=== PATIENT | male | born 1950 | race African-American/Black ===

== ENCOUNTER 2018-03-30 08:21 | Emergency (ER) | payer MEDICARE, OTHER ==
[~2018-03-30] VITALS: Ht 175.3 cm; Wt 55.0 kg
[2018-03-30] MEDS ORDERED: ONDANSETRON HCL 4MG/2ML INJ IV ONE (09:45)
[2018-03-30] MEDS ORDERED: SODIUM CHLORIDE 0.9% 1,000 ML IV ONE (09:45)
[2018-03-30 10:14] LABS: HEMATOCRIT. 43.3 % (42.0-52.0); HEMOGLOBIN. 14.6 g/dL (14.0-18.0); MEAN CORPUSCULAR HEMOGLOBIN 31.1 pg (28.0-32.0); MEAN CORPUSCULAR VOLUME 92.1 fL (80.0-94.0); RED CELL DISTRIBUTION WIDTH 13.2 % (11.6-14.6)
[2018-03-30 10:20] LABS: INR 1.1; PROTHROMBIN TIME 11.3 sec (9.1-11.1)
[2018-03-30 10:24] LABS: CHLORIDE 92 mEq/L (98-107)
[2018-03-30 10:37] LABS: PLATELET 309 x1000/uL (130-400)
[2018-03-30 10:41] LABS: PLATELET ESTIMATE NORMAL
[2018-03-30] MEDS ORDERED: FAMOTIDINE 20MG/2ML VIAL IV STA (11:17)
[2018-03-30] MEDS ORDERED: MAGNESIUM/ALUMINUM HYDROXIDE/SIMETHICONE 30ML UDC PO STA (11:17)
[2018-03-30 13:00] VITALS: BP 143/61
== END 2018-03-30 13:26 | disposition home or self-care (01) ==
LOC: ER 08:55
DX: K29.70 Gastritis, unspecified, without bleeding (principal); I10 Essential (primary) hypertension; K59.00 Constipation, unspecified
CPT/HCPCS: 36415; 74176; 80053; 83690; 85025; 85610; 96361; 96374; 96375; 99284; J2405; J3490; J7030

== ENCOUNTER 2018-04-02 18:53 | Inpatient (IN) | payer MEDICARE, OTHER ==
[~2018-04-02] VITALS: Ht 175.3 cm; Wt 45.8 kg
[2018-04-02] MEDS ORDERED: SODIUM CHLORIDE 0.9% 1,000 ML IV ONE (22:53)
[2018-04-02] MEDS ORDERED: MAGNESIUM/ALUMINUM HYDROXIDE/SIMETHICONE 30ML UDC PO STA (22:53)
[2018-04-02] MEDS ORDERED: ONDANSETRON HCL 4MG/2ML INJ IV STA (22:53)
[2018-04-02 23:10] LABS: CLARITY URINE CLEAR (CLEAR); COLOR URINE YELLOW (YELLOW); KETONES URINE TRACE (NEGATIVE); LEUKOCYTE ESTERASE URINE NEGATIVE (NEGATIVE); NITRITE URINE NEGATIVE (NEGATIVE); OCCULT BLOOD URINE NEGATIVE (NEGATIVE); PROTEIN URINE NEGATIVE (NEGATIVE); SPECIFIC GRAVITY URINE 1.025 (1.005-1.030)
[2018-04-02 23:43] LABS: BASOPHILS % 0.4 % (0.0-2.0); EOSINOPHILS % 0.6 % (0.0-5.0); HEMATOCRIT. 35.4 % (42.0-52.0); HEMOGLOBIN. 11.9 g/dL (14.0-18.0); LYMPHOCYTES % 17.7 % (20.0-50.0); MEAN CORPUSCULAR HEMOGLOBIN 31.3 pg (28.0-32.0); MEAN PLATELET VOLUME 8.5 fl (7.4-10.4); MONOCYTES % 7.6 % (2.0-8.0); NEUTROPHILS % 73.7 % (40.0-76.0); PLATELET 315 x1000/uL (130-400); RED BLOOD CELL COUNT 3.81 mill/uL (4.7-6.1)
[2018-04-02 23:46] LABS: CHLORIDE 97 mEq/L (98-107)
[2018-04-03] MEDS ORDERED: BENA20TA10 PO (01:48)
[2018-04-03 04:00] VITALS: BP 114/63
[2018-04-03] MEDS ORDERED: POLY17PO28 MT (04:10)
[2018-04-03] MEDS ORDERED: ONDA8TAB6 MT (04:10)
[2018-04-03] MEDS ORDERED: OMEP20TA15 MT (04:10)
[2018-04-03] MEDS ORDERED: FAMO-135 MT (04:10)
[2018-04-03 04:13] VITALS: BP 164/68
[2018-04-03] MEDS ORDERED: ONDANSETRON HCL 4MG/2ML INJ IV PRN (04:45)
[2018-04-03] MEDS: SODIUM CHLORIDE 0.9% 1,000 ML IV SCH ×2 (06:39→16:32)
[2018-04-03] MEDS ORDERED: OMEPRAZOLE 20MG CAPSULE EXTENDED RELEASE PO SCH ×2 (07:20→21:00)
[2018-04-03] MEDS ORDERED: HYDROMORPHONE HCL/PF 2MG/ML CPJ IV PRN (07:45)
[2018-04-03 08:00] VITALS: BP 89/64
[2018-04-03] MEDS ORDERED: BENAZEPRIL 10MG TABLET PO SCH (09:00)
[2018-04-03] MEDS ORDERED: MEDICATION NOT ON FORMULARY EA (Famotidine (Pepcid) 1 TAB) MT SCH (09:00)
[2018-04-03] MEDS ORDERED: MEDICATION NOT ON FORMULARY EA (Omeprazole Magnesium (Prilosec Otc) 1 TAB) MT SCH (09:00)
[2018-04-03] MEDS ORDERED: ENOXAPARIN 40MG/0.4ML SYR SUBCUT SCH (09:00)
[2018-04-03] MEDS ORDERED: POLYETHYLENE GLYCOL 3350 (17GM) 1 DOSE PACK PO SCH (09:00)
[2018-04-03] MEDS ORDERED: POLYETHYLENE GLYCOL MT SCH (09:00)
[2018-04-03] MEDS ORDERED: MEDICATION NOT ON FORMULARY EA (Benazepril Hcl 20 MG) PO SCH (09:00)
[2018-04-03] MEDS ORDERED: INFLUENZA VIRUS VACCINE(AFLURIA) 0.5ML SYR IM ONE (10:00)
[2018-04-03 12:00] VITALS: BP 126/70
[2018-04-03 16:00] VITALS: BP 132/51
[2018-04-03 17:39] VITALS: BP 132/81
== END 2018-04-03 18:54 | disposition home or self-care (01) | DRG 241 ==
LOC: ER 21:14 → 6EST 04-03 00:53 → EDBEDREQDT 04-03 00:57 → EDBEDREQ 04-03 00:57 → EDBEDREQTM 04-03 00:57 → EDBEDREQSVC 04-03 00:57 → ENRESERV 04-03 01:48
PROVIDERS: ADMIT Internal Medicine; ATTEND Internal Medicine
DX: K29.70 Gastritis, unspecified, without bleeding (principal); N17.9 Acute kidney failure, unspecified; E44.1 Mild protein-calorie malnutrition; E87.1 Hypo-osmolality and hyponatremia; D64.9 Anemia, unspecified; E87.8 Other disorders of electrolyte and fluid balance, not elsewhere classified; I10 Essential (primary) hypertension; E86.0 Dehydration; Z68.1 Body mass index [BMI] 19.9 or less, adult; Z79.899 Other long term (current) drug therapy
CPT/HCPCS: 36415; 83605; 96361; 96374; 99285; J1650; J2405; J7030

== ENCOUNTER 2018-04-08 14:45 | Emergency (ER) | payer MEDICARE, OTHER ==
[~2018-04-08] VITALS: Ht 170.2 cm; Wt 65.0 kg
[~2018-04-08 14:45] MED LIST: BENA20TA10 PO; FAMO-135 MT; OMEP20TA15 MT; ONDA8TAB6 MT; POLY17PO28 MT
[2018-04-08] MEDS ORDERED: NA PHOS,M-B/NA PHOS,DI-BA ENEMA 118ML PR ONE (17:30)
[2018-04-08] MEDS ORDERED: MAGNESIUM CITRATE 300ML SOLUTION PO ONE (17:30)
[2018-04-08 17:56] LABS: BASOPHILS % 0.5 % (0.0-2.0); EOSINOPHILS % 1.4 % (0.0-5.0); HEMATOCRIT. 29.2 % (42.0-52.0); LYMPHOCYTES % 17.3 % (20.0-50.0); MEAN CORPUSCULAR HEMOGLOBIN 31.5 pg (28.0-32.0); MEAN CORPUSCULAR VOLUME 92.4 fL (80.0-94.0); MEAN PLATELET VOLUME 8.1 fl (7.4-10.4); MONOCYTES % 9.4 % (2.0-8.0); NEUTROPHILS % 71.4 % (40.0-76.0); PLATELET 374 x1000/uL (130-400); RED BLOOD CELL COUNT 3.16 mill/uL (4.7-6.1); RED CELL DISTRIBUTION WIDTH 13.2 % (11.6-14.6)
[2018-04-08 18:00] LABS: CHLORIDE 98 mEq/L (98-107)
[2018-04-08 19:36] VITALS: BP 149/63
== END 2018-04-08 19:38 | disposition home or self-care (01) ==
LOC: ER 14:45
DX: K59.00 Constipation, unspecified (principal); I10 Essential (primary) hypertension; Z87.19 Personal history of other diseases of the digestive system; Z79.899 Other long term (current) drug therapy
CPT/HCPCS: 36415; 99283

== ENCOUNTER 2018-11-28 08:38 | Emergency (ER) | payer MEDICARE, OTHER ==
[~2018-11-28] VITALS: Ht 170.2 cm; Wt 52.0 kg
[2018-11-28] MEDS ORDERED: ONDANSETRON HCL 4MG/2ML INJ IV STA (09:08)
[2018-11-28] MEDS ORDERED: FAMOTIDINE 20MG/2ML VIAL IV STA (09:08)
[2018-11-28] MEDS ORDERED: PANTOPRAZOLE SODIUM 40 MG/VIAL IV STA (09:27)
[2018-11-28] MEDS ORDERED: MORPHINE SULFATE 4 MG/ML CPJ (NOT FOR IM USE) IV STA (09:27)
[2018-11-28 09:38] LABS: HEMATOCRIT. 45.3 % (42.0-52.0); HEMOGLOBIN. 14.9 g/dL (14.0-18.0); MEAN CORPUSCULAR HEMOGLOBIN 30.4 pg (28.0-32.0); MEAN CORPUSCULAR VOLUME 92.1 fL (80.0-94.0); MEAN PLATELET VOLUME 8.9 fl (7.4-10.4); PLATELET 266 x1000/uL (130-400); RED BLOOD CELL COUNT 4.92 mill/uL (4.7-6.1); RED CELL DISTRIBUTION WIDTH 15.3 % (11.6-14.6)
[2018-11-28 09:43] LABS: CHLORIDE 97 mEq/L (98-107)
[2018-11-28 09:44] LABS: INR 1.1
[2018-11-28 10:06] LABS: PLATELET ESTIMATE NORMAL
[2018-11-28] MEDS ORDERED: SODIUM CHLORIDE 0.9% 1,000 ML IV ONE (10:13)
[2018-11-28] MEDS ORDERED: ONDANSETRON HCL 4MG/2ML INJ IV ONE (11:30)
[2018-11-28 13:59] VITALS: BP 130/67
== END 2018-11-28 14:14 | disposition short-term general hospital (02) ==
LOC: ER 08:38 → CANBEDREQ 11:24 → ER 14:14
DX: K92.2 Gastrointestinal hemorrhage, unspecified (principal); R11.2 Nausea with vomiting, unspecified; R65.10 Systemic inflammatory response syndrome (SIRS) of non-infectious origin without acute organ dysfunction; I10 Essential (primary) hypertension; K21.9 Gastro-esophageal reflux disease without esophagitis; Z79.899 Other long term (current) drug therapy
CPT/HCPCS: 36415; 71045; 74176; 80053; 83690; 83880; 84484; 85025; 85610; 93005; 96361; 96374; 96375; 96376; 99285; C9113; J2405; J3490; J7030

== ENCOUNTER 2024-07-22 18:26 | Inpatient (IN) | payer MEDICARE, MEDICAID ==
[~2024-07-22] VITALS: Ht 175.3 cm; Wt 54.9 kg
[~2024-07-22 18:26] MED LIST changes: +ASCO500T20 PO; -BENA20TA10 PO; -FAMO-135 MT; +FERR-63 PO; +NIFE-33 PO; -OMEP20TA15 MT; -ONDA8TAB6 MT; +PANT40TA51 MT; -POLY17PO28 MT
[2024-07-22 20:02] LABS: BASOPHILS % 1.1 % (0.0-2.0); HEMATOCRIT. 31.5 % (42.0-52.0); HEMOGLOBIN. 10.4 g/dL (14.0-18.0); LYMPHOCYTES % 15.7 % (20.0-50.0); MEAN CORPUSCULAR HEMOGLOBIN 30.8 pg (28.0-32.0); MEAN CORPUSCULAR HGB CONC 33.1 g/dL (31.0-37.0); MEAN CORPUSCULAR VOLUME 92.9 fL (80.0-94.0); MEAN PLATELET VOLUME 7.8 fl (7.4-10.4); MONOCYTES % 13.9 % (2.0-8.0); NEUTROPHILS % 64.3 % (40.0-76.0); PLATELET 326 x1000/uL (130-400); RED BLOOD CELL COUNT 3.39 mill/uL (4.7-6.1); RED CELL DISTRIBUTION WIDTH 15.6 % (11.6-14.6); WHITE BLOOD COUNT 8.3 x1000/uL (4.5-11.0)
[2024-07-22 20:11] LABS: CHLORIDE 100 mEq/L (98-107); SODIUM 137 mEq/L (136-145)
[2024-07-22] MEDS: CEFAZOLIN 1000MG PREMIX 50 ML IV ONE (20:11)
[2024-07-22 20:12] LABS: CARBON DIOXIDE 27 mEq/L (21-32)
[2024-07-22 20:17] LABS: GLUCOSE 108 mg/dL (70-105); UREA NITROGEN BLOOD 45 mg/dL (9-23)
[2024-07-22 20:19] LABS: TROPONIN I HIGH SENSITIVITY 12 ng/L (3.0-53)
[2024-07-22 22:56] LABS: TROPONIN I HIGH SENSITIVITY 11 ng/L (3.0-53)
[2024-07-23 03:00] VITALS: BP 150/61; PULSE 81; RESP 20; TEMP 36.7
[2024-07-23] MEDS ORDERED: DOCUSATE SODIUM 100MG CAPSULE PO PRN (03:15)
[2024-07-23] MEDS ORDERED: HYDROCODONE/ACETAMINOPHEN 5/325MG TABLET PO PRN (03:15)
[2024-07-23] MEDS ORDERED: IPRATROPIUM/ALBUTEROL 0.5-3(2.5)MG/3ML NEB HHN PRN (03:15)
[2024-07-23] MEDS ORDERED: CLONIDINE 0.1MG TABLET PO PRN (03:15)
[2024-07-23] MEDS ORDERED: ACETAMINOPHEN 650MG SUPP PR PRN ×2 (03:15)
[2024-07-23] MEDS ORDERED: ACETAMINOPHEN 325MG TABLET PO PRN ×2 (03:15)
[2024-07-23] MEDS ORDERED: MAGNESIUM/ALUMINUM HYDROXIDE/SIMETHICONE 30ML UDC PO PRN (03:15)
[2024-07-23] MEDS ORDERED: GUAIFENESIN 200MG/10ML SUGAR FREE UDC PO PRN (03:15)
[2024-07-23] MEDS ORDERED: ONDANSETRON HCL 4MG/2ML INJ IV PRN (03:15)
[2024-07-23] MEDS ORDERED: DIPHENHYDRAMINE 50MG/ML VIAL IV PRN (03:15)
[2024-07-23 04:00] VITALS: BP 132/58; PULSE 70; RESP 19; TEMP 36.8; O2SAT 97
[2024-07-23 08:00] VITALS: BP 154/66; PULSE 71; RESP 18; TEMP 36.3; O2SAT 100
[2024-07-23] MEDS: FUROSEMIDE 20MG TABLET PO SCH (08:37)
[2024-07-23] MEDS: ENOXAPARIN 40MG/0.4ML SYR SUBCUT SCH (08:37)
[2024-07-23 12:00] VITALS: BP 151/62; PULSE 67; RESP 18; TEMP 36.5; O2SAT 100
[2024-07-23 12:18] LABS: CREATINE KINASE 340 IU/L (46-171)
[2024-07-23 16:00] VITALS: BP 164/57; PULSE 72; RESP 18; TEMP 36.3; O2SAT 97
[2024-07-23 20:00] VITALS: BP 136/64; PULSE 66; RESP 18; TEMP 36.8; O2SAT 95
[2024-07-23] MEDS: NIFEDIPINE XL 30MG TAB PO SCH (21:25)
[2024-07-24] VITALS: BP 136/53; PULSE 68; RESP 18; TEMP 36.3; O2SAT 98
[2024-07-24 04:00] VITALS: BP 143/60; PULSE 78; RESP 18; TEMP 36.7; O2SAT 98
[2024-07-24 08:00] VITALS: BP 152/70; PULSE 66; RESP 18; TEMP 36.6; O2SAT 97
[2024-07-24 08:29] LABS: BASOPHILS % 0.7 % (0.0-2.0); EOSINOPHILS % 2.6 % (0.0-5.0); HEMATOCRIT. 33.1 % (42.0-52.0); HEMOGLOBIN. 10.7 g/dL (14.0-18.0); LYMPHOCYTES % 15.8 % (20.0-50.0); MEAN CORPUSCULAR HGB CONC 32.3 g/dL (31.0-37.0); MEAN CORPUSCULAR VOLUME 93.1 fL (80.0-94.0); MEAN PLATELET VOLUME 8.1 fl (7.4-10.4); MONOCYTES % 12.9 % (2.0-8.0); PLATELET 366 x1000/uL (130-400); RED BLOOD CELL COUNT 3.56 mill/uL (4.7-6.1); WHITE BLOOD COUNT 7.4 x1000/uL (4.5-11.0)
[2024-07-24 08:31] LABS: CHLORIDE 98 mEq/L (98-107); POTASSIUM 3.9 mEq/L (3.5-5.1); SODIUM 137 mEq/L (136-145)
[2024-07-24] MEDS: ASCORBIC ACID 500 MG TABLET PO SCH (08:31)
[2024-07-24] MEDS: PANTOPRAZOLE 40MG DR TABLET PO SCH (08:32)
[2024-07-24 08:33] LABS: CALCIUM 8.9 mg/dL (8.7-10.4); CARBON DIOXIDE 30 mEq/L (21-32)
[2024-07-24 08:38] LABS: CREATININE 1.3 mg/dL (0.6-1.3); GLUCOSE 94 mg/dL (70-105); UREA NITROGEN BLOOD 36 mg/dL (9-23)
[2024-07-24 08:40] LABS: ALANINE AMINOTRANSFERASE 23 IU/L (10-49); ALBUMIN 3.6 g/dL (3.2-4.8); ASPARTATE AMINOTRANSFERASE 29 IU/L (<34); BILIRUBIN DIRECT 0.1 mg/dL (<=3.0)
[2024-07-24 08:41] LABS: BILIRUBIN TOTAL 0.4 mg/dL (0.1-1.0); PROTEIN TOTAL 7.3 g/dL (6.0-8.3); THYROID STIMULATING HORMONE 4.23 uIU/mL (0.55-4.78)
[2024-07-24] MEDS: FERROUS SULFATE 325MG TABLET PO SCH (08:41)
[2024-07-24 12:00] VITALS: BP 135/66; PULSE 81; RESP 20; TEMP 36.4; O2SAT 100
[2024-07-24 16:00] VITALS: BP 135/55; PULSE 64; RESP 19; TEMP 36.6; O2SAT 98
[2024-07-24 20:00] VITALS: BP 123/54; PULSE 68; RESP 19; TEMP 36.4; O2SAT 99
[2024-07-25] VITALS: BP 122/58; PULSE 71; RESP 19; TEMP 36.5; O2SAT 100
[2024-07-25 04:00] VITALS: BP 127/57; PULSE 74; RESP 19; TEMP 36.4; O2SAT 100
[2024-07-25 08:00] VITALS: BP 125/57; PULSE 73; RESP 19; TEMP 36.4; O2SAT 98
[2024-07-25 12:00] VITALS: BP 131/51; PULSE 76; RESP 18; TEMP 36.6; O2SAT 95
[2024-07-25 16:00] VITALS: BP 129/51; PULSE 74; RESP 19; TEMP 36.6; O2SAT 96
[2024-07-25 20:00] VITALS: BP 117/52; PULSE 77; RESP 19; TEMP 36.3; O2SAT 100
[2024-07-26 04:00] VITALS: BP 141/61; PULSE 75; RESP 19; TEMP 36.9; O2SAT 100
[2024-07-26 08:00] VITALS: BP 140/60; PULSE 78; RESP 18; TEMP 36.1; O2SAT 97
[2024-07-26 12:00] VITALS: BP 140/60; PULSE 72; RESP 18; TEMP 36.4; O2SAT 97
[2024-07-26 16:00] VITALS: BP 147/67; PULSE 80; RESP 19; TEMP 35.6; O2SAT 97
[2024-07-26 20:00] VITALS: BP 140/60; PULSE 71; RESP 19; TEMP 36.7; O2SAT 98
[2024-07-27] VITALS: BP 128/59; PULSE 72; RESP 19; TEMP 36.3; O2SAT 100
[2024-07-27 04:00] VITALS: BP 139/60; PULSE 71; RESP 19; TEMP 36.9; O2SAT 100
[2024-07-27 08:00] VITALS: BP 128/58; PULSE 74; RESP 19; TEMP 36.6; O2SAT 100
[2024-07-27 12:00] VITALS: BP 143/54; PULSE 78; RESP 20; TEMP 36.3; O2SAT 100
[2024-07-27 16:00] VITALS: BP 121/58; PULSE 79; RESP 20; TEMP 36.1; O2SAT 100
[2024-07-27 20:00] VITALS: BP 132/54; PULSE 69; RESP 18; TEMP 36.6; O2SAT 99
[2024-07-28] VITALS: BP 119/65; PULSE 68; RESP 18; TEMP 36.5; O2SAT 98
[2024-07-28 04:00] VITALS: BP 126/52; PULSE 73; RESP 18; TEMP 36.7; O2SAT 100
[2024-07-28 08:00] VITALS: BP 145/98; PULSE 70; RESP 18; TEMP 36.9; O2SAT 100
[2024-07-28 12:00] VITALS: BP 130/56; PULSE 76; RESP 18; TEMP 36.7; O2SAT 100
[2024-07-28 16:00] VITALS: BP 117/59; PULSE 81; RESP 18; TEMP 37.3; O2SAT 100
[2024-07-28 20:00] VITALS: BP 121/55; PULSE 74; RESP 20; TEMP 36.8; O2SAT 100
[2024-07-29] VITALS: BP 151/64; PULSE 67; RESP 20; TEMP 36.4; O2SAT 100
[2024-07-29 04:00] VITALS: BP 134/59; PULSE 70; RESP 20; TEMP 36.2; O2SAT 99
[2024-07-29 08:00] VITALS: BP 140/60; PULSE 66; RESP 17; TEMP 36.5; O2SAT 100
[2024-07-29 12:00] VITALS: BP 121/51; PULSE 68; RESP 17; TEMP 36.6; O2SAT 100
[2024-07-29 16:00] VITALS: BP 130/56; PULSE 75; RESP 18; TEMP 37.3; O2SAT 100
[2024-07-29 20:00] VITALS: BP 121/55; PULSE 82; RESP 20; TEMP 37.2; O2SAT 95
[2024-07-30] VITALS: BP 126/56; RESP 18; TEMP 36.7
[2024-07-30 04:00] VITALS: BP 131/57; PULSE 70; RESP 20; TEMP 36.7; O2SAT 1
[2024-07-30 08:00] VITALS: BP 126/53; PULSE 69; RESP 18; TEMP 36.6; O2SAT 100
[2024-07-30 12:00] VITALS: BP 112/50; PULSE 73; RESP 19; TEMP 36.3; O2SAT 98
[2024-07-30 16:00] VITALS: BP 127/53; PULSE 79; RESP 18; TEMP 36.6; O2SAT 97
[2024-07-30 17:43] LABS: BASOPHILS % 0.8 % (0.0-2.0); EOSINOPHILS % 4.9 % (0.0-5.0); HEMATOCRIT. 31.8 % (42.0-52.0); HEMOGLOBIN. 10.6 g/dL (14.0-18.0); MEAN CORPUSCULAR HEMOGLOBIN 30.3 pg (28.0-32.0); MEAN CORPUSCULAR HGB CONC 33.3 g/dL (31.0-37.0); MEAN CORPUSCULAR VOLUME 91.1 fL (80.0-94.0); MEAN PLATELET VOLUME 7.9 fl (7.4-10.4); MONOCYTES % 12.1 % (2.0-8.0); NEUTROPHILS % 64.2 % (40.0-76.0); PLATELET 404 x1000/uL (130-400); RED BLOOD CELL COUNT 3.49 mill/uL (4.7-6.1); RED CELL DISTRIBUTION WIDTH 14.4 % (11.6-14.6); WHITE BLOOD COUNT 7.7 x1000/uL (4.5-11.0)
[2024-07-30 20:00] VITALS: BP 131/54; PULSE 77; RESP 19; TEMP 36.7; O2SAT 100
[2024-07-31] VITALS: BP 128/51; PULSE 73; RESP 19; TEMP 36.6; O2SAT 100
[2024-07-31 04:00] VITALS: BP 127/61; PULSE 75; RESP 19; TEMP 37.4; O2SAT 100
[2024-07-31 08:00] VITALS: BP 131/54; PULSE 73; RESP 18; TEMP 36.2; O2SAT 98
[2024-07-31 12:00] VITALS: BP 128/62; PULSE 72; RESP 18; TEMP 36.8; O2SAT 99
[2024-07-31 16:00] VITALS: BP 124/66; PULSE 76; RESP 18; TEMP 36.6; O2SAT 98
[2024-07-31 17:56] LABS: CARBON DIOXIDE 30 mEq/L (21-32); CHLORIDE 95 mEq/L (98-107); POTASSIUM 3.4 mEq/L (3.5-5.1); SODIUM 136 mEq/L (136-145)
[2024-07-31 17:57] LABS: CALCIUM 9.1 mg/dL (8.7-10.4)
[2024-07-31 18:01] LABS: CREATININE 1.3 mg/dL (0.6-1.3); GLUCOSE 117 mg/dL (70-105)
[2024-07-31 18:02] LABS: UREA NITROGEN BLOOD 29 mg/dL (9-23)
[2024-07-31 20:00] VITALS: BP 128/69; PULSE 82; RESP 19; TEMP 35.8; O2SAT 100
[2024-08-01] VITALS: BP 112/48; PULSE 74; RESP 19; TEMP 35.8; O2SAT 97
[2024-08-01 04:00] VITALS: BP 122/52; PULSE 69; RESP 18; TEMP 37.1; O2SAT 100
[2024-08-01 06:58] LABS: CARBON DIOXIDE 32 mEq/L (21-32); CHLORIDE 95 mEq/L (98-107); POTASSIUM 3.6 mEq/L (3.5-5.1); SODIUM 137 mEq/L (136-145)
[2024-08-01 06:59] LABS: CALCIUM 9.3 mg/dL (8.7-10.4)
[2024-08-01 07:04] LABS: CREATININE 1.2 mg/dL (0.6-1.3); GLUCOSE 88 mg/dL (70-105); UREA NITROGEN BLOOD 32 mg/dL (9-23)
[2024-08-01 08:00] VITALS: BP 129/54; PULSE 69; RESP 18; TEMP 36.3; O2SAT 99
[2024-08-01] MEDS: POTASSIUM CHLORIDE 20MEQ TABLET SR PO SCH (09:01)
[2024-08-01] MEDS ORDERED: IOHEXOL-350 100 ML BOTTLE ONE (10:49)
[2024-08-01 12:00] VITALS: BP 115/64; PULSE 72; RESP 18; TEMP 36.1; O2SAT 98
[2024-08-01 15:57] VITALS: BP 115/64; PULSE 72; TEMP 96.9; O2SAT 98
== END 2024-08-01 17:27 | DRG 300 ==
LOC: ER 18:26 → 6EST 22:58 → EDBEDREQTM 23:02 → EDBEDREQ 23:02
PROVIDERS: ADMIT Family Medicine Adult Medicine; ATTEND Family Medicine Adult Medicine
DX: I73.9 Peripheral vascular disease, unspecified (principal); I83.209 Varicose veins of unspecified lower extremity with both ulcer of unspecified site and inflammation; L97.929 Non-pressure chronic ulcer of unspecified part of left lower leg with unspecified severity; L97.919 Non-pressure chronic ulcer of unspecified part of right lower leg with unspecified severity; S81.802A Unspecified open wound, left lower leg, initial encounter; S81.801A Unspecified open wound, right lower leg, initial encounter; I10 Essential (primary) hypertension; E78.5 Hyperlipidemia, unspecified; E87.70 Fluid overload, unspecified; X58.XXXA Exposure to other specified factors, initial encounter; Y93.89 Activity, other specified; Y92.89 Other specified places as the place of occurrence of the external cause; Y99.8 Other external cause status; D50.9 Iron deficiency anemia, unspecified
CPT/HCPCS: 36415; 71045; 75635; 80048; 80076; 82550; 83880; 84443; 84484; 85025; 87070; 87077; 87186; 93005; 93923; 93970; 97162; 97165; 99285; A4606; C1893; J0690; J1650; Q9967